=== PATIENT | female | born 1950 | race Caucasian/White ===

== ENCOUNTER 2023-11-13 12:21 | Inpatient (IN) | payer MEDICARE, SELFPAY ==
[2023-11-13] VITALS (9 sets, daily range): BP systolic 150–206; BP diastolic 67–76; PULSE 54–62; RESP 15–22; TEMP 36.6–37.1; O2SAT 92–98; BMI 43.7; BMI 46.6
--- NOTE | 2023-11-13 12:22 | CT_ITS ---
We are attempting to reach an attending provider to discuss findings. An addendum with communication details will be sent when the communication is complete. STUDY: CT BRAIN WITHOUT CONTRAST REASON FOR EXAM: Female, 73 years old. Altered mental status. Stroke alert. RADIATION DOSAGE (If Supplied By Facility): CTDIvol = ( 44.99 ) mGy, DLP = ( 863.60 ) mGycm TECHNIQUE: Transaxial CT imaging of the brain was performed without administration of intravenous contrast material. Individualized dose optimization techniques were used for this CT. COMPARISON: No relevant prior comparison study available FINDINGS: PARENCHYMA: There is no acute bleed or infarct. There are normal white matter tracts. VENTRICLES: There is no hydrocephalus. MASTOID AIR CELLS AND PARANASAL SINUSES: The visualized paranasal sinuses are clear. The mastoid air cells are clear. BONES: There is no skull fracture. SOFT TISSUES: The visualized soft tissues are within normal limits. CT/STROKE Brain/Head without Cont IMPRESSION: No acute intracranial abnormality. No hydrocephalus Electronically Signed: Jeyson Rodas MD at 12:36 EDT ,
--- NOTE | 2023-11-13 12:22 | RAD_ITS ---
STUDY: X-RAY CHEST REASON FOR EXAM: Female, 73 years old. neuro deficit, acute, stroke suspected TECHNIQUE: Single AP portable view of the chest. COMPARISON: None. FINDINGS: Linear opacity in the lower right lung consistent with discoid atelectasis. Elevated right hemidiaphragm. Normal size heart. Normal mediastinum and shekhar. Normal visualized pulmonary arteries. Normal visualized aortic arch and descending thoracic aorta. Normal visualized thoracic spine. Normal visualized ribs, clavicles, and shoulders. There is no demonstrated abnormality of the visualized soft tissue structures of the upper abdomen. RAD/Chest 1 View IMPRESSION: Elevated right hemidiaphragm with right lower lobe discoid atelectasis. Electronically Signed: Migue Burton MD at 17:20 EDT ,
--- NOTE | 2023-11-13 12:23 | CT_ITS ---
STUDY: CTA HEAD AND NECK WITH CONTRAST REASON FOR EXAM: Female, 73 years old. STROKE ALERT RADIATION DOSAGE (If Supplied By Facility): CTDIvol = ( 24.78 ) mGy, DLP = ( 774.45 ) mGycm TECHNIQUE: CT angiography was performed with a multi-detector CT scanner. Data acquisition was obtained from the skull base through the vertex following intravenous administration of IV 100mL [id number]-[id number]. MIP images were reconstructed from the axial data set. Post-processing of the angiographic images was performed, with multiplanar reformation and 3D reconstruction. Individualized dose optimization techniques were used for this CT. COMPARISON: No relevant priors. FINDINGS: Normal bilateral petrous carotid arteries. Normal right cavernous carotid artery with a normal supraclinoid bifurcation. Normal left cavernous carotid artery with a normal supraclinoid bifurcation. Normal right A1 segments of the anterior cerebral artery. Normal left A1 segments of the anterior cerebral artery. Normal intact anterior communicating artery (ACOM). Normal bilateral A2 segments of the anterior cerebral arteries. Normal right M1 and M2 segments of the middle cerebral arteries, with a normal M1 bifurcation. Normal left M1 and M2 segments of the middle cerebral arteries, with a normal M1 bifurcation. There is a persistent origin of the right posterior cerebral artery with absence of the posterior communicating artery (PCOM). Normal left posterior communicating artery (PCOM). Normal bilateral vertebral arteries. Normal basilar artery with a normal basilar bifurcation. The visualized bilateral superior cerebellar (SCA) arteries are normal. Normal bilateral P2 and visualized P3 segments of the posterior cerebral arteries. There is no demonstrated aneurysm of the [place]. There is no demonstrated abnormality of the visualized brain. There is diffuse multinodular goiter. AORTIC ARCH: Normal visualized aortic arch. Normal origins of the brachiocephalic, left common carotid, and left subclavian arteries. RIGHT CAROTID ARTERIES: Normal right common carotid artery (CCA). There is mild atherosclerotic plaque formation with minimal narrowing of the right carotid bulb. There is mild atherosclerotic plaque formation of the origin of the right internal carotid artery with less than 50% cross sectional diameter stenosis. Normal visualized cervical portion of the right internal carotid artery. Normal origin of the right external carotid artery (ECA). LEFT CAROTID ARTERIES: Normal left common carotid artery (CCA). There is mild atherosclerotic plaque formation with minimal narrowing of the left carotid bulb. There is mild atherosclerotic plaque formation of the origin of the left internal carotid artery with less than 50% cross sectional diameter stenosis. Normal visualized cervical portion of the left internal carotid artery. Normal origin of the left external carotid artery (ECA). VERTEBRAL ARTERIES: Normal bilateral vertebral arteries. CT/STROKE CTA Head AND Neck W/Con IMPRESSION: No intracranial aneurysm or large vessel occlusion. Mild, less than 50%, narrowing of the internal carotid arteries. No hemodynamically significant internal carotid artery stenosis. N.B. : The above Results were Read Back by Kaz Cifuentes MD to Yovanny Watson MD, and understanding confirmed on 11/13/2023 13:00:40 (ET). Electronically Signed: Kaz Cifuentes MD at 13:05 EDT ,
--- NOTE | 2023-11-13 12:23 | ED.VIS.STROK ---
HPI History of Present Illness Chief Complaint: Stroke Alert Detail of Chief Complaint: Left-sided facial weakness and numbness. Informant: patient and EMS Onset/Context/Timing Onset: Today Context: Sudden Onset Timing: Continuous Quality and Location: Positive for Left Facial Droop, Left Face Parasthesia and Slurred Speech Current Severity: Gone Maximum Severity: Mild Associated Symptoms Associated Symptoms: Positive for Headache; Negative for Nausea, Vomiting or Chest Pain Narrative Narrative: 73-year-old female history of hypertension on blood pressure medication. No history of prior stroke or mini stroke. No recent head injury. Around 11:37 AM today she noticed some numbness and weakness on the left side of her face with some slurred speech also noted by family. Those symptoms have improved and basically resolved. She does have a mild posterior headache. She is on no blood thinners. Prior similar symptoms: No Recent Illness/Hospitalization: No [facility] Medical History (Updated 11/13/23 @ 12:[address] Yovanny Watson MD) Hypertension Home Medications amlodipine 10 mg tablet 10 mg PO DAILY 11/13/23 [History Last Taken 11/12/23] cholecalciferol (vitamin D3) 1,250 mcg (50,000 unit) capsule 1,250 mcg PO QWEEK 11/13/23 [History Last Taken 11/12/23] losartan 100 mg tablet 100 mg PO DAILY 11/13/23 [History Last Taken 11/12/23] metoprolol succinate 100 mg tablet,extended release 24 hr 100 mg PO DAILY 11/13/23 [History Last Taken 11/12/23] Allergy/AdvReac Type Severity Reaction Status Date / Time Sulfa (Sulfonamide AdvReac Intermediate Rash Verified 11/13/23 12:38 Antibiotics) Social History Smoking Status: Never smoker ROS ROS ED ROS Narrative She denies recent illness. Review of Systems ROS Unobtainable: Denies due to encephalopathy Constitutional Constitutional ED: Denies fever(s) Eyes Eyes: Denies blurry vision, change in vision or diplopia ENT ENT ED: Denies ear pain Cardiovascular Cardiovascular: Denies chest pain Respiratory/Chest Respiratory/Chest: Denies cough or dyspnea Gastrointestinal Gastrointestinal: Denies abdominal pain, diarrhea, nausea or vomiting Genitourinary Genitourinary ED: Denies dysuria or hematuria Musculoskeletal Musculoskeletal: Denies arthralgias Integumentary Denies abscess Neurologic Neurologic: Reports headache(s) and paresthesias; Denies weakness Psychiatric Psychiatric: Denies anxiety or depression Endocrine Endocrinology: Denies polydipsia Hematologic/Lymphatic Hematologic/Lymphatic: Denies easy bleeding Allergic/Immunologic Allergic/Immunologic ED: Denies mouth swelling or urticaria EXAM Physical Exam Narrative Exam Narrative: Well-appearing 73-year-old female. Elevated blood pressure. Brought in by squad. Evaluated initially in the ambulance bay and taken down the CAT scan. Patient is awake and alert on her cot. Answering questions following commands. H EENT exam pupils round reactive light. Extra motions are intact. No facial droop. Currently normal speech. Tongue midline. Able to open close her eyes without any difficulty. Neck nontender. Lungs clear. Heart regular rhythm no murmur. Chest wall and ribs nontender. Abdomen soft nontender. Moving all 4 extremities. 5 out of 5 front office assistant strength. No drift with the upper extremities. Dorsi and plantarflexion intact. In the lower extremities. Neurologically she is awake and alert. Answering questions and following commands. NIH stroke scale is currently 0. Prior to arrival reportedly she had left facial droop, numbness on left side of her face and some slurred speech all of which have since resolved. Const Vital Signs: 11/13/23 12:23 11/13/23 12:32 11/13/23 12:35 Temperature 98.2 F 98.7 F Temperature Source Temporal Temporal Pulse Rate 60 Respiratory Rate 22 H Blood Pressure 188/67 H Blood Pressure Mean 107 Pulse Ox 94 Oxygen Delivery Method Room Air Room Air Positive well nourished and well developed; Negative for cachectic, contractures or unkempt General Appearance ED: well developed and NAD; Negative for unkempt, cachectic or contractures Nutritional Appearance: Negative for cachectic HEENT Reports moist mucous membranes; Denies dry mucous membranes atraumatic; Negative for trauma Nose: Negative for other Mouth ED: No dry mucous membranes Mouth: No dry mucous membranes Eyes PERRL and EOMs intact bilaterally General Eye ED: Negative for pale conjunctiva or scleral icterus Neck no lymphadenopathy, supple and no JVD General: Negative for tenderness Thyroid: Negative for other Chest Wall inspection of chest normal and palpation of chest normal Chest: Negative for other Resp normal respiratory effort and clear to auscultation bilaterally Effort and Inspection: Negative for retractions Auscultation: Negative for rales, rhonchi, wheezes or diminished lung sounds Cardio no murmurs Rate: regular rate Rhythm: regular rhythm Heart Sounds: Negative for S1 normal or S2 normal GI normal to inspection, nondistended, normoactive bowel sounds, non-tender, non-distended and no masses Inspection: Negative for abdominal distention Auscultation: normoactive bowel sounds Palpation: Negative for tender, guarding or rebound tenderness present Back/Spine no CVA tenderness General Back: Negative for CVA tenderness Cervical Spine: Negative for cervical spine tenderness Thoracic Spine / Upper Back: Negative for thoracic spinal tenderness Lumbar Spine / Lower Back: Negative for lumbar spinal tenderness Extremity normal to inspection General Extremety ED: Negative for deformity, edema or tenderness General Extremity: Negative for deformity or edema Neuro oriented x3, CN's II-XII intact bilaterally and no sensory deficits noted Sensorium / Orientation: alert, oriented to person, oriented to place and oriented to time; Negative for orientation impaired, confused, lethargic or stuporous Cranial Nerves: other NIH score equals 0 currently. Speech: speech normal Motor Exam: strength 5/5 throughout Psych Appearance: Negative for unkempt Attitude: No agitated Mood & Affect: Negative for depressed, anxious or tearful Attention / Concentration: Negative for other Skin no wounds General Skin Exam: Negative for jaundice Lesions: no lesions Rashes: no rashes Trauma: Negative for abrasion or laceration NIHSS NIHSS Initial: 1a Level of Consciousness: 0 1b LOC Questions (Score 2 if aphasic/stupor): 0 1c LOC Commands (Only score 1st attempt): 0 2 Best Gaze (If aphasic, use reflexive mvmts.): 0 3 Visual: 0 4 Facial Palsy: 0 5 Motor Arm Right (UN = amputation/fusion): 0 5 Motor Arm Left: 0 6 Motor Leg Right: 0 6 Motor Leg Left: 0 7 Limb ataxia (Only + if out of proportion): 0 8 Sensory (Aphasia/stupor=0 or 1, coma=2): 0 9 Best Language: 0 10 Dysarthria (mute, coma=2, intubated=UN): 0 11 Extinction and Inattention (only scored if +): 0 Total Score: 0 MDM MDM MDM Narrative Medical decision making narrative: 73-year-old female strokelike symptoms that have currently resolved. May be a TIA. She will be placed in a stroke protocol with a CT and CTA. Also concern due to her elevated blood pressure potential intracranial bleed. She is currently in CAT scan she will be reassessed when she returns. Repeat exam at 12:41 pm the patient returned from CAT scan. Is unchanged. She is awake alert. NIH is 0. Her plain CAT scan has been read as negative by the radiologist and called to me. Family is aware they are aware of the plan of the stroke workup and eventual admission. Repeat exam at 1 PM patient is doing well. Again NIH score remains 0. He is awake alert and talking. Has no focal motor deficits. Currently has normal speech. No facial droop. Subjectively she might have some decreased sensation to the left side of her face but she can feel touch sensation to her face. I discussed all test results of both CAT scans to her and her family at bedside. I have a hospitalist on page for admission. Her most recent blood pressure was 188/67. History & Record Review Discussion w/independent historian: EMS personnel and Patient Lab Data Attestation: I reviewed the patient's lab results. Lab results narrative: CBC white count of 6. H&H is 16 and 49. Platelets are 210. PT and INR 14 and 1. PTT 27. BMP unremarkable. Gap 6. BUN and creatinine of 20 and 0.7. Glucose 115. Troponin 10. CT of the brain chronic disease. CTA chronic disease no acute clot. Per the radiologist. Labs: Laboratory Results - last 24 hr 11/13/23 12:25 WBC 6.7 RBC 5.28 Hgb 16.7 H Hct 49.2 H MCV 93.2 MCH 31.6 MCHC 33.9 RDW Std Deviation 43.5 RDW Coeff of Dina 12.8 Plt Count 210 MPV 8.7 Immature Gran % (Auto) 0.300 Neut % (Auto) 60.8 Lymph % (Auto) 26.8 [place] % (Auto) 8.2 Eos % (Auto) 3.3 Baso % (Auto) 0.6 Absolute Neuts (auto) 4.1 Absolute Lymphs (auto) 1.79 Nucleated RBC % 0 PT 14.0 INR 1.1 APTT 27.2 Sodium 140 Potassium 4.2 Chloride 107 Carbon Dioxide 27.0 Anion Gap 6 BUN 20 H Creatinine 0.77 Estim Creat Clear Calc 83.79 Est GFR (MDRD) Af Amer 94 Est GFR (MDRD) Non-Af 78 BUN/Creatinine Ratio 25.9 H Glucose 115 H Calcium 9.5 Troponin I High Sens 10 Radiography Chest X-Ray - ED: 1 View, Read by ED Physician, Normal, Heart, Lungs, Mediastinum, Bony Structures, No Acute Disease and Chronic Changes Diagnostic Testing: Chest x-ray, portable, single view shows no acute abnormality. Normal cardiac silhouette. Atelectasis. Rhythm Strip Rhythm Strip: Sinus bradycardia Rate: 53 Ectopy: PVC(s) EKG Initial EKG: Attestation: I personally reviewed and interpreted this EKG as follows: Interpretation: Sinus Bradycardia Comments: Sinus bradycardia rate of 53. Occasional PVC. No acute signs of [place] or ischemia. Discharge Plan Dx/Rx/DC Orders Clinical Impression: Brain TIA, Hypertension Disposition Disposition: Acute Care [facility]
[2023-11-13 12:35] LABS: Absolute Lymphocyte Count 1.79 X10^3/uL (0.83-4.51); Absolute Neutrophil Count 4.1 X10^3/uL (2.0-7.7); Basophil# 0.04 X10^3/uL; Basophil% 0.6 % (0-1); Eosinophil# 0.22 X10^3/uL; Eosinophils% 3.3 % (0-5); Hematocrit 49.2 % (37-47); Hemoglobin 16.7 g/dL (12.0-15.0); Lymphocyte # 1.79 X10^3/ul (0.83-4.51); Lymphocyte % 26.8 % (19-41); Mean Corp Hgb Conc 33.9 g/dL (32-36); Mean Corpuscular Hgb 31.6 pg (27.0-32.0); Mean Corpuscular Volume 93.2 fL (81-99); Mean Platelet Vol. 8.7 fl (6.2-12.0); Monocyte# 0.55 X10^3/uL; Monocyte% 8.2 % (0-10); NRBC Flagged by Analyzer 0 % (0-5); Neutrophil # 4.05 X10^3/uL (2.7-7.7); Neutrophil % 60.8 % (47-70); Platelet Count 210 K/mm3 (150-450); RBC Distribution Width CV 12.8 % (11.6-14.6); RBC Distribution Width SD 43.5 fl (35.1-43.9); Red Blood Count 5.28 M/mm3 (4.2-5.4); White Blood Count 6.7 K/mm3 (4.4-11.0)
[2023-11-13 12:44] LABS: International Normalized Ratio 1.1
[2023-11-13 12:45] LABS: Partial Thromboplast Time 27.2 Seconds (24.1-36.2)
[2023-11-13 12:52] LABS: Anion Gap 6 (5-15); BUN 20 mg/dL (7-18); BUN/Creat Ratio 25.9 RATIO (10-20); Calcium,Total 9.5 mg/dL (8.5-10.1); Chloride 107 mmol/L (98-107); Creatinine, Serum 0.77 mg/dL (0.55-1.02); EST Glomerular Filtration Rate 78 mL/min (>60); Est Glom Filt Rate - Afr Amer 94 mL/min (>60); Estimated Creatinine Clearance 83.79 ml/min; Glucose 115 mg/dL (74-106); Potassium 4.2 mmol/L (3.5-5.1); Sodium Level 140 mmol/L (136-145); Troponin-I HS 10 pg/mL (3.0-54.0)
--- NOTE | 2023-11-13 13:04 | ED.RN ---
per Dr. Watson, okay to discontinue NIHSS
--- NOTE | 2023-11-13 13:17 | NURSING ---
1204 stroke alert called 15 min eta
--- NOTE | 2023-11-13 13:41 | NURSING ---
JULY NEWMAN TIA, HTN
--- NOTE | 2023-11-13 14:01 | HP.PCM.HOS_ITS ---
HPI - General General Date of Admission: 11/13/23 Date of Service: 11/13/23 Chief Complaint: Facial weakness and slurred speech HPI Narrative BASSAM URBANO, is a 73 F who presents with left face numbness and slurred speech. At approximately 1147, patient developed facial weakness and numbness and had slurred speech. Patient was sent to the emergency room where she underwent a initial stroke workup that was negative. Patient continued to have facial numbness and weakness on her left side but her speech improved. Patient denies any weakness in her left upper or lower extremity. Patient has never had a stroke before. Hospitalist service was contacted for admission. [facility] Medical History Hypertension Home Medications amlodipine 10 mg tablet 10 mg PO DAILY 11/13/23 [History Last Taken 11/12/23] cholecalciferol (vitamin D3) 1,250 mcg (50,000 unit) capsule 1,250 mcg PO QWEEK 11/13/23 [History Last Taken 11/12/23] losartan 100 mg tablet 100 mg PO DAILY 11/13/23 [History Last Taken 11/12/23] metoprolol succinate 100 mg tablet,extended release 24 hr 100 mg PO DAILY 11/02 07/28 [History Last Taken 11/12/23] Allergy/AdvReac Type Severity Reaction Status Date / Time Sulfa (Sulfonamide AdvReac Intermediate Rash Verified 11/13/23 12:38 Antibiotics) Family History (Updated 11/13/23 @ 14:[address] Zachary Lopez DO) Other CVA (cerebral vascular accident) Hypertension Social History (Updated 11/13/23 @ 14:[address] Zachary Lopez DO) Smoking Status: Never smoker alcohol intake: current alcohol intake frequency: holidays/special occasions only substance use type: does not use Vital Signs Vital Signs Vital Signs: 11/13/23 12:23 11/13/23 12:32 11/13/23 12:35 Temperature 36.8 C 37.1 C Temperature Source Temporal Temporal Pulse Rate 60 Respiratory Rate 22 H Blood Pressure 188/67 H Blood Pressure Mean 107 Pulse Ox 94 Oxygen Delivery Method Room Air Room Air 11/13/23 12:52 11/13/23 13:21 Temperature Temperature Source Pulse Rate 56 L 55 L Respiratory Rate 18 16 Blood Pressure 172/70 H 193/76 H Blood Pressure Mean 104 115 Pulse Ox 95 92 Oxygen Delivery Method Room Air Room Air Weight Weight: 122.924 kg Body Mass Index (BMI) 43.7 Results Lab / Micro Data Attestation: I reviewed the patient's lab results. 11/13/23 12:25 11/13/23 12:25 Labs: Laboratory Results - last 24 hr 11/13/23 12:25: WBC 6.7, RBC 5.28, Hgb 16.7 H, Hct 49.2 H, MCV 93.2, MCH 31.6, MCHC 33.9, RDW Std Deviation 43.5, RDW Coeff of Dina 12.8, Plt Count 210, MPV 8.7, Immature Gran % (Auto) 0.300, Neut % (Auto) 60.8, Lymph % (Auto) 26.8, [place] % (Auto) 8.2, Eos % (Auto) 3.3, Baso % (Auto) 0.6, Absolute Neuts (auto) 4.1, Absolute Lymphs (auto) 1.79, Nucleated RBC % 0, PT 14.0, INR 1.1, APTT 27.2, Sodium 140, Potassium 4.2, Chloride 107, Carbon Dioxide 27.0, Anion Gap 6, BUN 20 H, Creatinine 0.77, Estim Creat Clear Calc 83.79, Est GFR (MDRD) Af Amer 94, Est GFR (MDRD) Non-Af 78, BUN/Creatinine Ratio 25.9 H, Glucose 115 H, Calcium 9.5, Troponin I High Sens 10 Rhythm Strip Rhythm Strip: Sinus bradycardia Rate: 53 Ectopy: PVC(s) EKG Initial EKG: Attestation: I personally reviewed and interpreted this EKG as follows: Prior EKG tracings: available for review EKG Rhythm Intrepretation: Sinus Rhythm Assessment & Plan Assessment/Plan (1) CVA (cerebral vascular accident): PLAN: Plan Acute stroke * Onset was 147 on 11/13/2023. * NIH currently is 1. Patient still does have mild left facial weakness. * Preliminary CT finding showed no acute process. * Discussed with the patient, told her that we would not be able to get the studies done, such as the MRI and echocardiogram until the . She understands and agrees to stay. * In the meantime, PT, OT, speech therapy * MRI of the brain, echocardiogram, fasting other panel. * Will load with aspirin. Aspirin 81 daily. Hypertension * Will allow permissive hypertension given the acute stroke * Patient to resume his home medications on the after 24 hours after his stroke. VTE prophylaxis with enoxaparin CODE STATUS: Addressed with the patient. Full code Charges/Coding Visit Charges Inpatient E&M: 14456 Init Hosp L3
[2023-11-13] MEDS: Aspirin 325 MG Tablet PO (15:01)
[2023-11-13] MEDS: Atorvastatin Calcium 80 MG Tablet PO (20:24)
[2023-11-14] VITALS (8 sets, daily range): BP systolic 157–182; BP diastolic 61–87; PULSE 60–73; RESP 16–20; TEMP 36.6–37.2; O2SAT 92–96; BMI 46.6
[2023-11-14 06:44] LABS: Cholesterol 140 mg/dL (200); High Density Lipoprotein 37 mg/dL; Triglycerides 114 mg/dL; Very Low Density Lipoprotein 23 mg/dL (5-40)
--- NOTE | 2023-11-14 08:21 | PN.HOSP_ITS ---
Reason for Visit Reason for Visit: Diagnoses Cerebral infarction, unspecified (11/13/23) Objective Data Objective Data Vital Signs: Vital Signs Temp Pulse Resp BP Pulse Ox O2 Del Method 98.1 F 63 18 174/61 H 94 Room Air 11/14/23 05:46 11/14/23 05:46 11/14/23 05:46 11/14/23 05:46 11/14/23 05:46 11/14/23 05:46 Oxygen Delivery Method Room Air Weight: 298 lb 1.039 oz Body Mass Index (BMI) 46.6 Intake & Output: Intake and Output for Last 24 Hours 11/12/23 11/13/23 11/14/23 23:59 23:59 23:59 Intake Total 120 / 480 480 / 480 Balance 120 / 480 480 / 480 Lab / Micro Data 11/13/23 12:25 11/13/23 12:25 Labs: Laboratory Results - last 24 hr 11/13/23 12:25: WBC 6.7, RBC 5.28, Hgb 16.7 H, Hct 49.2 H, MCV 93.2, MCH 31.6, MCHC 33.9, RDW Std Deviation 43.5, RDW Coeff of Dina 12.8, Plt Count 210, MPV 8.7, Immature Gran % (Auto) 0.300, Neut % (Auto) 60.8, Lymph % (Auto) 26.8, [place] % (Auto) 8.2, Eos % (Auto) 3.3, Baso % (Auto) 0.6, Absolute Neuts (auto) 4.1, Absolute Lymphs (auto) 1.79, Nucleated RBC % 0, PT 14.0, INR 1.1, APTT 27.2, Sodium 140, Potassium 4.2, Chloride 107, Carbon Dioxide 27.0, Anion Gap 6, BUN 20 H, Creatinine 0.77, Estim Creat Clear Calc 83.79, Est GFR (MDRD) Af Amer 94, Est GFR (MDRD) Non-Af 78, BUN/Creatinine Ratio 25.9 H, Glucose 115 H, Calcium 9.5, Troponin I High Sens 10 11/14/23 05:30: Triglycerides 114, Cholesterol 140, LDL Cholesterol 80, VLDL Cholesterol 23, HDL Cholesterol 37 L Radiography Diagnostic Testing: Radiology Impression Chest X-Ray 11/13/23 12:22 IMPRESSION: Elevated right hemidiaphragm with right lower lobe discoid atelectasis. Electronically Signed: Migue Burton MD at 17:20 EDT , Rhythm Strip Rhythm Strip: Sinus bradycardia Rate: 53 Ectopy: PVC(s) Assessment & Plan Assessment/Plan (1) CVA (cerebral vascular accident): PLAN: Plan Acute stroke * Onset was 147 on 11/13/2023. * NIH currently is 1. Patient still does have mild left facial weakness. * Preliminary CT finding showed no acute process. * Discussed with the patient, told her that we would not be able to get the studies done, such as the MRI and echocardiogram until the . She understands and agrees to stay. * In the meantime, PT, OT, speech therapy * MRI of the brain, echocardiogram, fasting other panel. * Will load with aspirin. Aspirin 81 daily. Hypertension * Will allow permissive hypertension given the acute stroke * Patient to resume his home medications on the after 24 hours after his stroke. VTE prophylaxis with enoxaparin CODE STATUS: Addressed with the patient. Full code
[2023-11-14] MEDS: Enoxaparin 40 MG/0.4 ML Syringe SC (10:01)
[2023-11-14] MEDS: Aspirin 81 MG TAB.CHEW PO (10:01)
--- NOTE | 2023-11-14 13:40 | NEURO.CONS ---
Assessment and Plan: Neuro Assessment/Plan Telestroke (Bidirectional Audio-video) [facility] Consult Note 73 y/o woman with h/o neck pain takes tylenol p/w after an episode of expressive aphasia and left face numbness, lasted for a few minutes. History is obtained from patient. CT head- no acute intracranial process. CTA- no LVO or significant stenosis. She reports of family history of stroke in siblings. On my review of MRI brain - no acute strokes. Diagnosis: TIA Plan: Continue ASA and statin. Follow up final read of MRI brain. Follow up TTE. Control of vascular risk factors. I personally attended this patient and spent a total time of 71 minutes evaluating this patient including clinical assessment, review of chart, medical history imaging, and determining appropriate treatment and workup. HPI Consult Data Date of Consult: 11/14/23 HPI Narrative HPI Narrative: 73 y/o woman with h/o neck pain takes tylenol p/w after an episode of expressive aphasia and left face numbness, lasted for a few minutes. History is obtained from patient. CT head- no acute intracranial process. CTA- no LVO or significant stenosis. She reports of family history of stroke in siblings. ROS Constitutional Constitutional ED: Denies fever(s) Eyes Eyes: Denies blurry vision, change in vision or diplopia ENT ENT ED: Denies ear pain Cardiovascular Cardiovascular: Denies chest pain Respiratory/Chest Respiratory/Chest: Denies cough or dyspnea Gastrointestinal Gastrointestinal: Denies abdominal pain, diarrhea, nausea or vomiting Genitourinary Genitourinary ED: Denies dysuria or hematuria Musculoskeletal Musculoskeletal: Denies arthralgias Integumentary Denies abscess Neurologic Neurologic: Reports headache(s) and paresthesias; Denies weakness Psychiatric Psychiatric: Denies anxiety or depression Endocrine Endocrinology: Denies polydipsia Hematologic/Lymphatic Hematologic/Lymphatic: Denies easy bleeding Allergic/Immunologic Allergic/Immunologic ED: Denies mouth swelling or urticaria [facility] Medical History Hypertension Home Medications amlodipine 10 mg tablet 10 mg PO DAILY 11/13/23 [History Last Taken 11/12/23] cholecalciferol (vitamin D3) 1,250 mcg (50,000 unit) capsule 1,250 mcg PO QWEEK Supplement 11/13/23 [History Last Taken 11/12/23] losartan 100 mg tablet 100 mg PO DAILY 11/13/23 [History Last Taken 11/12/23] metoprolol succinate 100 mg tablet,extended release 24 hr 100 mg PO DAILY 11/13/23 [History Last Taken 11/12/23] Allergy/AdvReac Type Severity Reaction Status Date / Time Sulfa (Sulfonamide AdvReac Intermediate Rash Verified 11/13/23 12:38 Antibiotics) Family History (Updated 11/13/23 @ 14:[address] Zachary Lopez DO) Other CVA (cerebral vascular accident) Hypertension Social History (Updated 11/13/23 @ 14:[address] Zachary Lopez DO) Smoking Status: Current every day smoker alcohol intake: current alcohol intake frequency: holidays/special occasions only substance use type: does not use Vital Signs Vital Signs Vital Signs: 11/13/23 14:00 11/13/23 14:36 11/13/23 14:52 Temperature 97.9 F 98.1 F Temperature Source Oral Pulse Rate 54 L 54 L Pulse Strength Respiratory Rate 15 18 Respiratory Effort Normal Non-Labored Respiratory Depth Normal Respiratory Pattern Normal Blood Pressure 188/68 H 184/68 H Blood Pressure Mean 108 106 Blood Pressure Source Monitor Blood Pressure Position Semi-Fowlers Blood Pressure Location Right Arm Pulse Ox 98 97 Oxygen Delivery Method Room Air Room Air 11/13/23 15:28 11/13/23 17:46 11/13/23 21:46 Temperature 98.1 F 98.5 F Temperature Source Temporal Oral Pulse Rate 59 L 62 Pulse Strength Respiratory Rate 18 18 Respiratory Effort Respiratory Depth Respiratory Pattern Blood Pressure 206/74 H 150/67 H Blood Pressure Mean 118 94 Blood Pressure Source Monitor Monitor Blood Pressure Position Semi-Fowlers Semi-Fowlers Blood Pressure Location Right Arm Left Forearm Pulse Ox 93 94 95 Oxygen Delivery Method Room Air Room Air Room Air 11/13/23 20:30 11/13/23 21:59 11/14/23 01:46 Temperature 97.9 F Temperature Source Oral Pulse Rate 60 Pulse Strength Normal (2+) Respiratory Rate 16 Respiratory Effort Normal Non-Labored Respiratory Depth Normal Respiratory Pattern Normal Blood Pressure 157/62 H Blood Pressure Mean 93 Blood Pressure Source Monitor Blood Pressure Position Semi-Fowlers Blood Pressure Location Left Arm Pulse Ox 95 Oxygen Delivery Method Room Air Room Air 11/14/23 01:50 11/14/23 05:46 11/14/23 08:00 Temperature 98.1 F Temperature Source Oral Pulse Rate 63 Pulse Strength Respiratory Rate 18 Respiratory Effort Normal Non-Labored Respiratory Depth Normal Respiratory Pattern Normal Blood Pressure 174/61 H Blood Pressure Mean 98 Blood Pressure Source Monitor Blood Pressure Position Semi-Fowlers Blood Pressure Location Left Arm Pulse Ox 94 92 Oxygen Delivery Method Room Air Room Air Room Air 11/14/23 09:46 11/14/23 09:54 11/14/23 09:50 Temperature 98.6 F Temperature Source Oral Pulse Rate 73 Pulse Strength Normal (2+) Respiratory Rate 20 H Respiratory Effort Normal Non-Labored Respiratory Depth Normal Respiratory Pattern Normal Blood Pressure 182/87 H Blood Pressure Mean 118 Blood Pressure Source Monitor Blood Pressure Position Semi-Fowlers Blood Pressure Location Left Arm Pulse Ox 94 94 Oxygen Delivery Method Room Air Room Air 11/14/23 13:25 11/14/23 13:31 Temperature 98.9 F Temperature Source Oral Pulse Rate 73 Pulse Strength Respiratory Rate 20 H Respiratory Effort Normal Non-Labored Respiratory Depth Normal Respiratory Pattern Normal Blood Pressure 178/61 H Blood Pressure Mean 100 Blood Pressure Source Monitor Blood Pressure Position Semi-Fowlers Blood Pressure Location Left Arm Pulse Ox 96 96 Oxygen Delivery Method Room Air Room Air Weight Weight: 135.2 kg Body Mass Index (BMI) 46.6 EEG Results Procedure Details EEG Procedure Details: BASSAM URBANO is a 73 year old F with a past medical history of , who presents for evaluation of Electroencephalogram on DATE at TIME NIHSS NIHSS Nursing Documentation NIHSS Nursing Documentation: NIHSS: Ischemic Stroke/TIA Start: 11/13/23 14:22 Text: For ICU Patients: NIH sroke scale at Status: Complete presentation and every 2 hours or with change in RN caregiver Freq: [id number] Protocol: Activity Type Activity Date Activity User E-sign Co-sign Detail Recorded Client Recorded Date Recorded By Document 11/13/23 14:37 KS Desktop 11/13/23 14:37 KS 11/13/23 14:37 NIH Stroke Scale [NIHSS] A score of 0 is normal or asymptomatic . Total possible score is 42. Inpatient: RN or Physician to activate a stroke alert for onset of new stroke symptoms or with NIHSS increase >/= 3 points. Following change in neurological status, NIHSS will be performed per physician order or more frequently PRN. -1a. Level of Consciousness Alert; keenly responsive -1b. LOC Questions Answers BOTH questions correctly. -1c. LOC Commands Performs both tasks correctly . -2. Best Gaze Normal -3. Visual No visual loss -4. Facial Palsy Normal symmetrical movements -5a. Left Arm No drift; arm holds 90 (or 45 ) degrees for full 10 seconds -5b. Right Arm No drift; arm holds 90 (or 45 ) degrees for full 10 seconds -6a. Left Leg No drift; leg holds 30-degree position for full 5 seconds -6b. Right Leg No drift; leg holds 30-degree position for full 5 seconds -7. Limb Ataxia Absent -8. Sensory Normal; no sensory loss -9. Best Language No aphasia; normal -10. Dysarthria Normal -11. Extinction and Inattention No abnormality -Total 0 Query Text:A score of 0 is normal or asymptomatic. Total possible score is 42 . ED: Notify Physician for NIHSS increase by > / = 3 points. Inpatient: RN or Physician to activate a stroke alert for NIHSS increase of > / = 3 points. Coma Scale [Assess] -Eye Opening Spontaneous -Motor Obeys Commands -Verbal Oriented [Total] -Coma Scale Total 15 NIHSS: Ischemic Stroke/TIA Start: 11/13/23 14:22 Text: For PCU Patients: NIH and Neuro Check every 4 Status: Active hours, PRN and with change in RN caregiver. Freq: [id number] Protocol: Activity Type Activity Date Activity User E-sign Co-sign Detail Recorded Client Recorded Date Recorded By Document 11/14/23 13:28 Desktop 11/14/23 13:28 11/14/23 13:28 NIH Stroke Scale [NIHSS] A score of 0 is normal or asymptomatic . Total possible score is 42. Inpatient: RN or Physician to activate a stroke alert for onset of new stroke symptoms or with NIHSS increase >/= 3 points. Following change in neurological status, NIHSS will be performed per physician order or more frequently PRN. -1a. Level of Consciousness Alert; keenly responsive -1b. LOC Questions Answers BOTH questions correctly. -1c. LOC Commands Performs both tasks correctly . -2. Best Gaze Normal -3. Visual No visual loss -4. Facial Palsy Normal symmetrical movements -5a. Left Arm No drift; arm holds 90 (or 45 ) degrees for full 10 seconds -5b. Right Arm No drift; arm holds 90 (or 45 ) degrees for full 10 seconds -6a. Left Leg No drift; leg holds 30-degree position for full 5 seconds -6b. Right Leg No drift; leg holds 30-degree position for full 5 seconds -7. Limb Ataxia Absent -8. Sensory Normal; no sensory loss -9. Best Language No aphasia; normal -10. Dysarthria Normal -11. Extinction and Inattention No abnormality -Total 0 Query Text:A score of 0 is normal or asymptomatic. Total possible score is 42 . ED: Notify Physician for NIHSS increase by > / = 3 points. Inpatient: RN or Physician to activate a stroke alert for NIHSS increase of > / = 3 points. Coma Scale [Assess] -Eye Opening Spontaneous -Motor Obeys Commands -Verbal Oriented [Total] -Coma Scale Total 15 NIHSS 1a. Level of Consciousness: Alert; keenly responsive 1b. LOC Questions: Answers BOTH questions correctly. 1c. LOC Commands: Performs both tasks correctly. 2. Best Gaze: Normal 3. Visual: No visual loss 4. Facial Palsy: Normal symmetrical movements 5a. Left Arm: No drift; arm holds 90 (or 45) degrees for full 10 seconds 5b. Right Arm: No drift; arm holds 90 (or 45) degrees for full 10 seconds 6a. Left Leg: No drift; leg holds 30-degree position for full 5 seconds 6b. Right Leg: No drift; leg holds 30-degree position for full 5 seconds 7. Limb Ataxia: Absent 8. Sensory: Normal; no sensory loss 9. Best Language: No aphasia; normal 10. Dysarthria: Normal 11. Extinction and Inattention: No abnormality Total: 0 Physical Exam Narrative General: The patient appears nutritionally appropriate, well-groomed, and appears comfortable in no acute distress. Mental Status:? The patient?s mental status was normal including orientation.? Language was intact.? Cranial nerves:? Visual herndon full, and extra-ocular motion was intact. Mild right facial droop.? There was no dysarthria. Motor: Normal strength and tone in all four extremities. No pronator drift. Sensation: Intact light touch bilaterally, no extinction.? Coordination:? Bilateral finger to nose was normal.? There was no dysmetria. Gait:? deferred Lab / Micro Data 11/13/23 12:25 11/13/23 12:25 Labs: Laboratory Results - last 24 hr 11/14/23 05:30: Triglycerides 114, Cholesterol 140, LDL Cholesterol 80, VLDL Cholesterol 23, HDL Cholesterol 37 L Rhythm Strip Rhythm Strip: Sinus bradycardia Rate: 53 Ectopy: PVC(s) Imaging Radiology Impression Brain CT 11/13/23 12:22 IMPRESSION: No acute intracranial abnormality. No hydrocephalus N.B. : The above Results were Read Back by Jeyson Rodas MD to MD Walter, and understanding confirmed on 11/13/2023 12:37:26 (ET). Electronically Signed: Jeyson Rodas MD at 12:36 EDT , Chest X-Ray 11/13/23 12:22 IMPRESSION: Elevated right hemidiaphragm with right lower lobe discoid atelectasis. Electronically Signed: Migue Burton MD at 17:20 EDT , Head/Neck CTA 11/13/23 12:23 IMPRESSION: No intracranial aneurysm or large vessel occlusion. Mild, less than 50%, narrowing of the internal carotid arteries. No hemodynamically significant internal carotid artery stenosis. N.B. : The above Results were Read Back by Kaz Cifuentes MD to Yovanny Watson MD, and understanding confirmed on 11/13/2023 13:00:40 (ET). Electronically Signed: Kaz Cifuentes MD at 13:05 EDT , Active Medications Active Medications Active Medications: Current Medications Generic Name Dose Route Start Last Admin Trade Name Freq PRN Reason Stop Dose Admin Acetaminophen 650 mg 11/13/23 14:22 Acetaminophen 325 Mg Tablet PO Q6H PRN PRN Pain 1-10 Or Fever >100.7 Amlodipine Besylate 10 mg 11/15/23 10:00 Amlodipine 10 Mg Tablet PO DAILY [facility] Protocol Aspirin 81 mg 11/14/23 08:00 11/14/23 10:01 Aspirin 81 Mg Tab.Chew PO 81 mg BREAKFAST [facility] Administration Atorvastatin Calcium 80 mg 11/13/23 22:00 11/13/23 20:24 Atorvastatin Calcium 80 Mg Tablet PO 80 mg QHS STE[facility] Administration Enoxaparin Sodium 40 mg 11/14/23 10:00 11/14/23 10:01 Enoxaparin 40 Mg/0.4 Ml Syringe SC 40 mg DAILY STEFF Administration Ergocalciferol 1.25 mg 11/19/23 10:00 Ergocalciferol 1.25 Mg (50, 000 Unit) Capsule PO QWEEK [facility] Sodium Chloride 500 mls @ 15 mls/hr 11/13/23 14:23 IV PRN PRN Blood Transfusion Sodium Chloride 250 mls @ 15 mls/hr 11/13/23 14:23 IV .[id number] PRN Additional IVPB Infusion Sodium Chloride 250 mls @ 15 mls/hr 11/13/23 14:23 IV .[id number] PRN Saline Flush Losartan Potassium 100 mg 11/15/23 10:00 Losartan Potassium 100 Mg Tablet PO DAILY [facility] Protocol Metoprolol Succinate 100 mg 11/15/23 10:00 Metoprolol(Xl)Succ 100 Mg Tablet PO DAILY [facility] Protocol Ondansetron HCl 4 mg 11/13/23 14:22 Ondansetron 4 Mg/2 Ml Vial IV Q8H PRN PRN NAUSEA/VOMITING Sodium Chloride 10 - 40 ml 11/13/23 14:23 0.9% Saline Lock 10 Ml Syringe IV UD PRN SALINE FLUSH
--- NOTE | 2023-11-14 14:22 | MRI_ITS ---
STUDY: MRI BRAIN WITHOUT CONTRAST REASON FOR EXAM: Female, 73 years old. CVA TECHNIQUE: Standardized multiplanar fat and water weighted pulse sequences were obtained. COMPARISON: MRI of the brain dated June 30, 2012. Head CT dated November 13, 2023 FINDINGS: Normal size of the ventricles and extra-axial spaces for the patient''s age. There are a limited number of small white matter hyperintensities, distributed throughout the deep white matter tracts of the cerebral hemispheres, consistent with mild chronic white matter ischemic changes. There is no evidence for recent intracranial ischemia or other cause of cytotoxic edema on diffusion weighted imaging (DWI). Normal T2* images of the brain without demonstrated susceptibility artifact. There is no demonstrated hemosiderin stain. There are no demyelinating plagues of the supratentorial brain, brainstem or cerebellum. There are no findings suspicious for multiple sclerosis (MS). Normal bilateral basal ganglia. Normal thalami. There is no extra-axial fluid accumulation. Normal flow voids within the major intracranial circulation suggesting patency by spin echo criteria. Normal sella turcica, pituitary gland, infundibular stalk, optic chiasm and hypothalamus. Normal tectal plate and pineal gland. Normal midbrain, barb and medulla. Normal cerebellum. Normal basal cisterns. Normal bilateral temporal bones. Normal bilateral internal auditory canals. No demonstrated orbital abnormality, within the constraints of a routine brain study. Normal visualized paranasal sinuses. Normal calvarium and skull base. Normal visualized soft tissue structures. Normal visualized upper cervical spine. MRI/Brain without Contrast IMPRESSION: 1. Involutional and chronic ischemic changes of the brain, as described above. Electronically Signed: Matteo Whalen MD at 13:45 EDT ,
--- NOTE | 2023-11-14 14:22 | PCM.DC ---
Discharge Instructions Diet Discharge Diet: Low fat / Low cholesterol and 2000 mg Sodium Diet Activity Discharge Activity: Return to Normal Activity Weight Bearing Status: Weight bearing as tolerated Dressing / Incision Call your doctor if you observe: Fever of 101 or Higher, Coldness, Increased Pain, Numbness or Tingling, Change in Color, Inability to urinate, Inability to have a bowel movement, Using more than 1 pad per hour, Shortness of breath, Dizziness, Fainting spells, Swelling in the ankles, Chest pain, Prolonged hiccupping, Increased palpitations (irregular heartbeat) and Calf discomfort Follow Up Care When: IN 2 WEEKS Test Results: Test results from this visit will be discussed in further detail at your follow-up appointment, if applicable. Discharge Plan Admission Admit Date/Time: 11/13/23 13:36 Primary Reason for Your Visit: TIA Attending Provider: Jeff Radford Primary Care Provider: Adelso Day Consulting Providers: Floyd Samano; Kobi Álvarez; Shelby Vaca; Rowena Darden; Delia Ko; Steve Laboy; Rebecca Crespo; Andrew Stearns; Lincoln Pittman; Kiki Pond; Ramses Ku; Genesis Nolasco; Shayne Garcia; Ino Henry; Williams Naranjo; Rosendo Alex; Manuel Bro; Anisa Pearl; Janusz Schmid; Zachary Lopez Instructions Additional Instructions / Restrictions: Outpatient TTE with bubble contrast study to complete workup for TIA in 1 to 2 weeks. 30-day event monitor ordered Discharge Orders/Prescriptions Prescriptions: New atorvastatin 80 mg Tablet 80 mg PO QHS 30 Days Qty: 30 3RF aspirin 81 mg Tablet,Chewable 81 mg PO BREAKFAST 30 Days Qty: 30 6RF Continued metoprolol succinate 100 mg tablet extended release 24 hr 100 mg PO DAILY amlodipine 10 mg tablet 10 mg PO DAILY losartan 100 mg tablet 100 mg PO DAILY cholecalciferol (vitamin D3) 1,250 mcg (50,000 unit) capsule 1,250 mcg PO QWEEK Patient Comments: PT TAKES ON FRIDAYS Other Ambulatory Orders: 30 Day Event Recorder Preventi (Routine) Timeframe: 1 Month Facility: [facility] - Location: Cardiovascular Services Ordered By: Dr. Jeff Radford Referrals / Follow Up: Adelso Day DO [Primary Care Provider] - Within 1 Week Rod Aguilar MD [Non-Staff] - Within 1 Month (For TIA) Disposition Disposition (needs filled in before D/C Order can be placed): Home, Self Care
--- NOTE | 2023-11-14 14:33 | PCM.DC.SUM ---
Providers Date of Admission: 11/13/23 Date of Discharge: 11/14/23 Primary Care Physician: Dr. Adelso Day, DO Consultations 11/13/23 14:22 Consult: Tele-Neurology Routine Consulting Provider: [facility] Reason for Consult: Acute Ischemic Stroke/TIA EMERGENT Consult: No MD Notified: Yes Date Notified: 11/13/23 Time Notified: 13:40 Method of Notification: Answering Service Nursing Unit Staff Notify [facility] of Tele-Neurology Consult: Yes Reason For Visit: CVA Diagnosis Discharge Diagnosis (1) CVA (cerebral vascular accident): Status: Acute Code(s): I63.9 - Cerebral infarction, unspecified Plan 73-year-old female was admitted with left-sided facial numbness slurred speech and felt TIA Acute TIA Onset was 147 on 11/13/2023. NIH currently is 1. As per admitting hospitalist but I do not feel facial palsy. Preliminary CT finding showed no acute process. Patient had MRI brain and CT angiogram. MRI brain did not show acute stroke/ischemia. CTA head and neck does not show LVO. Mild less than 50% narrowing of internal carotid arteries. Normal sinus rhythm at 69 bpm on the monitoring and evaluation advisor. Patient was further evaluated by neurologist and impression was TIA. Patient underwent to go home and get outpatient TTE as it will not be done until tomorrow on Wednesday. Recommended 30-day event monitor and follow-up PCP in 1 week. Follow-up with neurologist in 1 month. Patient was evaluated by PT OT and speech as per stroke workup. Discharged on aspirin 81 mg daily and high intensity atorvastatin. Hypertension On permissive hypertension given the acute event of TIA Home medication to be resumed on 11/15/2023 VTE prophylaxis with enoxaparin CODE STATUS: Full code Discharge medication reconciliation done. Discharge follow-up instructions completed. Discharge process discussed with the patient and all questions were answered to patient's satisfaction. Follow with PCP in 1 to 2 weeks Total time spent, exact 35 minutes on discharge meds reconciliation, examination, coordination of care with nurses and ancillary staff, review of imaging and blood test and discussion with the patient on follow-up instructions. Medications at Discharge Home Medications amlodipine 10 mg tablet 10 mg PO DAILY 11/13/23 cholecalciferol (vitamin D3) 1,250 mcg (50,000 unit) capsule 1,250 mcg PO QWEEK Supplement 11/13/23 losartan 100 mg tablet 100 mg PO DAILY 11/13/23 metoprolol succinate 100 mg tablet,extended release 24 hr 100 mg PO DAILY 11/13/23 aspirin 81 mg chewable tablet 81 mg PO BREAKFAST 30 days #30 tabs 11/14/23 atorvastatin 80 mg tablet 80 mg PO QHS 30 days #30 tabs 11/14/23 Physical Exam Narrative Seen and examined. Patient does not have any focal weakness. Slurred speech has resolved. Mild facial weakness also resolved. Patient complained of mild neck pain. Physical exam General: Alert, Oriented x3, Cooperative HEENT: Atraumatic, PERRLA, EOMI, Normocephalic Oral: Oral mucosa moist. Edentulous. No Gingival or Mucosal Lesions/ Ulcerations Neck: Supple, No JVD, Negative Carotid Bruits. No cervical lymphadenopathy palpable. Chest wall/Lungs: Air entry diminished in bilateral lung bases. No crepitation/rhonchi Cardiovascular: Regular rate, Regular Rhythm, Normal S1, Normal S2, No M/G/R Abdomen: Bowel Sounds Present, Soft, Non Tender, Non-Distended : No dysuria. No renal angle tenderness. No suprapubic tenderness. Extremities: No edema, Capillary Refill Less than 3 Seconds Skin: No rashes, No breakdown Musculoskeletal: Mild C-spine chronic muscle tenderness. Chronic cervical spondylosis. Degenerative arthritis of knees joint. Neurological: Cranial nerves II-XII grossly intact, DTR 2+/4. No acute focal neurological deficit. NIH scale 0. Psych/Mental Status: Normal Affect, Appropriate. Weight / BMI Weight Weight: 298 lb 1.039 oz Body Mass Index (BMI) 46.6 ABG / Lab / Microbiology Data 11/13/23 12:25 11/13/23 12:25 Laboratory: Laboratory Results - last 24 hr 11/14/23 05:30: Triglycerides 114, Cholesterol 140, LDL Cholesterol 80, VLDL Cholesterol 23, HDL Cholesterol 37 L Radiography Diagnostic Testing: Radiology Impression Brain CT 11/13/23 12:22 IMPRESSION: No acute intracranial abnormality. No hydrocephalus N.B. : The above Results were Read Back by Jeyson Rodas MD to MD Walter, and understanding confirmed on 11/13/2023 12:37:26 (ET). Electronically Signed: Jeyson Rodas MD at 12:36 EDT , Chest X-Ray 11/13/23 12:22 IMPRESSION: Elevated right hemidiaphragm with right lower lobe discoid atelectasis. Electronically Signed: Migue Burton MD at 17:20 EDT , Head/Neck CTA 11/13/23 12:23 IMPRESSION: No intracranial aneurysm or large vessel occlusion. Mild, less than 50%, narrowing of the internal carotid arteries. No hemodynamically significant internal carotid artery stenosis. N.B. : The above Results were Read Back by Kaz Cifuentes MD to Yovanny Watson MD, and understanding confirmed on 11/13/2023 13:00:40 (ET). Electronically Signed: Kaz Cifuentes MD at 13:05 EDT , Brain MRI 11/14/23 14:22 IMPRESSION: 1. Involutional and chronic ischemic changes of the brain, as described above. Electronically Signed: Matteo Whalen MD at 13:45 EDT , D/C Instructions Discharge Diet: Low fat / Low cholesterol and 2000 mg Sodium Diet Weight Bearing Status: Weight bearing as tolerated Call your doctor if you observe: Fever of 101 or Higher, Coldness, Increased Pain, Numbness or Tingling, Change in Color, Inability to urinate, Inability to have a bowel movement, Using more than 1 pad per hour, Shortness of breath, Dizziness, Fainting spells, Swelling in the ankles, Chest pain, Prolonged hiccupping, Increased palpitations (irregular heartbeat) and Calf discomfort When: IN 2 WEEKS Meaningful Use Info Meaningful Use Meaningful Use Diagnoses (Choose all that apply): None applicable Ischemic Stroke Statin Dosing Therapy Reference: STATIN DOSE THERAPY REFERENCE: * Patients > 75 years receive moderate or high dose statin therapy. * Patients 75 years or YOUNGER should receive HIGH intensity statin dose unless contraindicated. You will be required to document reason for non-treatment if statin daily dose does not meet guidelines. HIGH DOSE STATIN THERAPY DAILY Atorvastatin > than or = to 40 mg Rosuvastatin > than or = to 20 mg Amlodipine + Atorvastatin > than or = to 2.5/40 mg Ezetimibe + Simvastatin 10/80 mg Simvastatin 80mg Discharge Plan Admission Admit Date/Time: 11/13/23 13:36 Primary Reason for Your Visit: TIA Attending Provider: Jeff Radford Primary Care Provider: Adelso Day Consulting Providers: Floyd Samano; Kobi Álvarez; Shelby Vaca; Rowena Darden; Delia Ko; Steve Laboy; Rebecca Crespo; Andrew Stearns; Lincoln Pittman; Kiki Pond; Ramses Ku; Genesis Nolasco; Shayne Garcia; Ino Henry; Williams Naranjo; Rosendo Alex; Manuel Bro; Anisa Pearl; Janusz Schmid; Zachary Lopez Instructions Additional Instructions / Restrictions: Outpatient TTE with bubble contrast study to complete workup for TIA in 1 to 2 weeks. 30-day event monitor ordered Discharge Orders/Prescriptions Prescriptions: New atorvastatin 80 mg Tablet 80 mg PO QHS 30 Days Qty: 30 3RF aspirin 81 mg Tablet,Chewable 81 mg PO BREAKFAST 30 Days Qty: 30 6RF Continued metoprolol succinate 100 mg tablet extended release 24 hr 100 mg PO DAILY amlodipine 10 mg tablet 10 mg PO DAILY losartan 100 mg tablet 100 mg PO DAILY cholecalciferol (vitamin D3) 1,250 mcg (50,000 unit) capsule 1,250 mcg PO QWEEK Patient Comments: PT TAKES ON FRIDAYS Other Ambulatory Orders: 30 Day Event Recorder Preventi (Routine) Timeframe: 1 Month Facility: [facility] - Location: Cardiovascular Services Ordered By: Dr. Jeff Radford Referrals / Follow Up: Adelso Day DO [Primary Care Provider] - Within 1 Week Rod Aguilar MD [Non-Staff] - Within 1 Month (For TIA) Disposition Disposition (needs filled in before D/C Order can be placed): Home, Self Care Charges/Coding Visit Charges Inpatient E&M: 34133 Disch Hosp >30min
[2023-11-14 15:57] LABS: Hemoglobin A1c 5.1 % (3.8-5.6)
== END 2023-11-14 17:13 | disposition home or self-care (01) | DRG 69 ==
LOC: ED 13:54 → PCU 13:57
PROVIDERS: Emergency Provider Emergency Medicine; PCP Student in an Organized Health Care Education/Training Program; Visit Provider Internal Medicine
DX: G45.9 Transient cerebral ischemic attack, unspecified (principal); F17.200 Nicotine dependence, unspecified, uncomplicated; I10 Essential (primary) hypertension; R29.701 NIHSS score 1
CPT/HCPCS: 36415; 70450; 70496; 70498; 70551; 71045; 80048; 80061; 83036; 84484; 85025; 85610; 85730; 92610; 93005; 94762; 97802; 99285; Q9967; A4216